=== PATIENT | female | born 1980 | race Caucasian/White ===

== ENCOUNTER 2019-06-26 20:18 | Emergency (ER) | payer BC ==
[2019-06-26] MEDS ORDERED: ONDANSETRON 4 MG/2 ML VIAL IVP STA (21:15)
[2019-06-26] MEDS ORDERED: SODIUM CHLORIDE 0.9% 1,000 ML IV STA (21:15)
[2019-06-26] MEDS ORDERED: KETOROLAC 30 MG/ML 1 ML VIAL IVP STA (21:15)
--- NOTE | 2019-06-26 21:27 | ED ---
General Adult HPI - General Chief complaint: Abdominal Pain Stated complaint: abd pain Time Seen by Provider: 06/26/19 20:48 Source: patient Mode of arrival: ambulatory Limitations: no limitations - History of Present Illness Initial comments: Dictation was produced using [employer] dictation software. please excuse any grammatical, word or spelling errors. Chief Complaint: 38-year-old female presents with flank pain. History of Present Illness: Patient is a 38-year-old female she presents with 3- 4 hours of flank pain. Patient states that the pain is also in her right abdomen. She has history of appendectomy. Patient states that the pain is located to the right lower quadrant however she does have symptoms that also radiated to the right back area. Patient is no history of kidney stones. She denies any vaginal discharge. She has been feeling nauseous. She has been having nonbilious nonbloody emesis. Denies any diarrhea. Denies any fever. The ROS documented in this emergency department record has been reviewed and confirmed by me. Those systems with pertinent positive or negative responses have been documented in the HPI. All other systems are other negative and/or noncontributory. PHYSICAL EXAM: General Impression: Alert and oriented x3, acute distress secondary to pain HEENT: Normocephalic atraumatic, extra-ocular movements intact, pupils equal and reactive to light bilaterally, mucous membranes moist. Cardiovascular: Heart regular rate and rhythm, S1&S2 audible, no murmurs, rubs or gallops Chest: Lungs clear to auscultation bilaterally, no rhonchi, no wheeze, no rales Abdomen: Right lower quadrant tenderness to palpation Musculoskeletal: Pulses present and equal in all extremities, no peripheral edema Motor: no focal deficits noted Neurological: CN II-XII grossly intact, no focal motor or sensory deficits noted Skin: Intact with no visualized rashes Psych: Normal affect and mood ED course: 38-year-old female presents with chief complaint of right flank pain. Vital signs upon arrival are within acceptable limits. Patient appeared to be in distress. Laboratory evaluation was obtained. Mild leukocytosis of 12.5, coag panel unremarkable. Metabolic panel is unremarkable. Urinalysis shows greater 182 red blood cells. Computed tomography scan of the abdomen and pelvis was obtained showing no acute processes. There is however multiple nonobstructing renal calculi. Given symptomatology there is concern that patient's pain was secondary to nephrolithiasis. Patient reevaluated after intravenous fluids and Toradol with improvement of symptoms. Patient is asymptomatic at this time. Patient given referral to urology for outpatient management of kidney stones. She is told to follow-up with primary care physician as well. There is incidental finding of right ovarian cyst. Patient told to follow-up with her primary care physician for outpatient monitoring of ovarian cyst. - Related Data Previous Rx's Medication Instructions Recorded Ibuprofen [Motrin] 800 mg PO Q8HR PRN #20 tab 04/22/14 Orphenadrine [Norflex] 100 mg PO Q12H #10 tablet.er 04/22/14 Allergies Allergy/AdvReac Type Severity Reaction Status Date / Time venom-honey bee AdvReac Unknown Verified 06/26/19 20:42 [bee venom (honey bee)] Review of Systems ROS Statement: Those systems with pertinent positive or pertinent negative responses have been documented in the HPI. ROS Other: All systems not noted in ROS Statement are negative. Past Medical History Past Medical History: Diabetes Mellitus, Hyperlipidemia History of Any Multi-Drug Resistant Organisms: None Reported Past Surgical History: Appendectomy Additional Past Surgical History / Comment(s): oral Past Psychological History: No Psychological Hx Reported Smoking Status: Current every day smoker Past Alcohol Use History: Rare Past Drug Use History: None Reported General Exam Limitations: no limitations Course Vital Signs 06/26/19 06/26/19 20:39 23:01 Temperature 98.5 F Pulse Rate 82 86 Respiratory 20 18 Rate Blood Pressure 144/94 116/80 O2 Sat by Pulse 99 100 Oximetry Medical Decision Making - Lab Data Result diagrams: 06/26/19 21:35 06/26/19 21:35 Lab Results 06/26/19 06/26/19 06/26/19 Range/Units 20:50 20:50 21:35 WBC 12.5 H (3.8-10.6) k/uL RBC 4.60 (3.80-5.40) m/uL Hgb 12.4 (11.4-16.0) gm/dL Hct 39.6 (34.0-46.0) % MCV 86.2 (80.0-100.0) fL MCH 26.9 (25.0-35.0) pg MCHC 31.2 (31.0-37.0) g/dL RDW 13.5 (11.5-15.5) % Plt Count 271 (150-450) k/uL Neutrophils % 70 % Lymphocytes % 23 % Monocytes % 3 % Eosinophils % 1 % Basophils % 1 % Neutrophils # 8.8 H (1.3-7.7) k/uL Lymphocytes # 2.9 (1.0-4.8) k/uL Monocytes # 0.4 (0-1.0) k/uL Eosinophils # 0.2 (0-0.7) k/uL Basophils # 0.1 (0-0.2) k/uL PT (9.0-12.0) sec INR (<1.2) APTT (22.0-30.0) sec Sodium (137-145) mmol/L Potassium (3.5-5.1) mmol/L Chloride (98-107) mmol/L Carbon Dioxide (22-30) mmol/L Anion Gap mmol/L BUN (7-17) mg/dL Creatinine (0.52-1.04) mg/dL Est GFR (CKD-EPI)AfAm (>60 ml/min/1.73 sqM) Est GFR (CKD-EPI)NonAf (>60 ml/min/1.73 sqM) Glucose (74-99) mg/dL Calcium (8.4-10.2) mg/dL Total Bilirubin (0.2-1.3) mg/dL AST (14-36) U/L ALT (4-34) U/L Alkaline Phosphatase (38-126) U/L Total Protein (6.3-8.2) g/dL Albumin (3.5-5.0) g/dL Lipase (23-300) U/L Urine Color Yellow Urine Appearance Clear (Clear) Urine pH QNS Ur Specific Bryan QNS Urine Protein QNS Ur Protein Confirm QNS Urine Glucose (UA) QNS Urine Ketones QNS Urine Blood QNS Urine Nitrite QNS Urine Bilirubin QNS Ur Bilirubin Confirm QNS Urine Urobilinogen QNS Ur Leukocyte Esterase QNS Urine RBC >182 H (0-5) /hpf Urine WBC 13 H (0-5) /hpf Ur Squamous Epith Cells 4 (0-4) /hpf Urine Bacteria Occasional H (None) /hpf Urine Mucus Moderate H (None) /hpf Urine HCG, Qual Not Detected (Not Detectd) 06/26/19 06/26/19 Range/Units 21:35 21:35 WBC (3.8-10.6) k/uL RBC (3.80-5.40) m/uL Hgb (11.4-16.0) gm/dL Hct (34.0-46.0) % MCV (80.0-100.0) fL MCH (25.0-35.0) pg MCHC (31.0-37.0) g/dL RDW (11.5-15.5) % Plt Count (150-450) k/uL Neutrophils % % Lymphocytes % % Monocytes % % Eosinophils % % Basophils % % Neutrophils # (1.3-7.7) k/uL Lymphocytes # (1.0-4.8) k/uL Monocytes # (0-1.0) k/uL Eosinophils # (0-0.7) k/uL Basophils # (0-0.2) k/uL PT 9.5 (9.0-12.0) sec INR 0.9 (<1.2) APTT 23.4 (22.0-30.0) sec Sodium 139 (137-145) mmol/L Potassium 4.0 (3.5-5.1) mmol/L Chloride 105 (98-107) mmol/L Carbon Dioxide 24 (22-30) mmol/L Anion Gap 10 mmol/L BUN 14 (7-17) mg/dL Creatinine 0.72 (0.52-1.04) mg/dL Est GFR (CKD-EPI)AfAm >90 (>60 ml/min/1.73 sqM) Est GFR (CKD-EPI)NonAf >90 (>60 ml/min/1.73 sqM) Glucose 162 H (74-99) mg/dL Calcium 10.2 (8.4-10.2) mg/dL Total Bilirubin 0.4 (0.2-1.3) mg/dL AST 33 (14-36) U/L ALT 45 H (4-34) U/L Alkaline Phosphatase 55 (38-126) U/L Total Protein 8.1 (6.3-8.2) g/dL Albumin 4.8 (3.5-5.0) g/dL Lipase 111 (23-300) U/L Urine Color Urine Appearance (Clear) Urine pH Ur Specific Bryan Urine Protein Ur Protein Confirm Urine Glucose (UA) Urine Ketones Urine Blood Urine Nitrite Urine Bilirubin Ur Bilirubin Confirm Urine Urobilinogen Ur Leukocyte Esterase Urine RBC (0-5) /hpf Urine WBC (0-5) /hpf Ur Squamous Epith Cells (0-4) /hpf Urine Bacteria (None) /hpf Urine Mucus (None) /hpf Urine HCG, Qual (Not Detectd) Disposition Clinical Impression: Flank pain Disposition: HOME SELF-CARE Condition: Good Instructions (If sedation given, give patient instructions): Kidney Stones (ED) Additional Instructions: There is incidental finding of right ovarian cyst seen on CT. Please follow-up with your primary care physician regarding this incidental finding. Is patient prescribed a controlled substance at d/c from ED?: No Referrals: Pro Peral MD [Primary Care Provider] - 1-2 days Fredrick Rodriguez MD [STAFF PHYSICIAN] - 1-2 days Time of Disposition: 23:57
[2019-06-26 21:52] LABS: Bacteria,Urine Occasional /hpf; Mucus,Urine Moderate /hpf; RBC,Urine >182 /hpf (0-5); Squamous Epithelial Cell,Urine 4 /hpf (0-4); WBC,Urine 13 /hpf (0-5)
[2019-06-26 21:53] LABS: Appearance,Urine Clear (Clear); Bilirubin Confirmation, Urine QNS (Negative); Bilirubin,Urine QNS (Negative); Blood,Urine QNS (Negative); Color,Urine Yellow; Glucose,Urine (UA) QNS (Negative); Ketones,Urine QNS (Negative); Leukocyte Esterase,Urine QNS (Negative); Nitrite,Urine QNS (Negative); PH, Urine QNS (5.0-8.0); Protein Confirmation,Urine QNS (Negative); Protein,Urine QNS (Negative); Specific Gravity,Urine QNS (1.001-1.035); Urobilinogen,Urine QNS mg/dL (<2.0)
[2019-06-26 21:59] LABS: Basophils # (A) 0.1 k/uL (0-0.2); Basophils % (A) 1 %; Eosinophils # (A) 0.2 k/uL (0-0.7); Eosinophils % (A) 1 %; HCT 39.6 % (34.0-46.0); HGB 12.4 gm/dL (11.4-16.0); Lymphocytes # (A) 2.9 k/uL (1.0-4.8); Lymphocytes % (A) 23 %; MCH 26.9 pg (25.0-35.0); MCHC 31.2 g/dL (31.0-37.0); MCV 86.2 fL (80.0-100.0); Mean Platelet Volume 8.5; Monocytes # (A) 0.4 k/uL (0-1.0); Monocytes % (A) 3 %; Neutrophils # (A) 8.8 k/uL (1.3-7.7); Neutrophils % (A) 70 %; Platelet Count 271 k/uL (150-450); RDW 13.5 % (11.5-15.5); WBC 12.5 k/uL (3.8-10.6)
[2019-06-26 22:07] LABS: INR 0.9 (<1.2); Partial Thromboplastin Time 23.4 sec (22.0-30.0); Prothrombin Time 9.5 sec (9.0-12.0)
[2019-06-26 22:11] LABS: ALT 45 U/L (4-34); AST 33 U/L (14-36); African American GFR (CKD) >90 (>60 ml/min/1.73 sqM); Albumin 4.8 g/dL (3.5-5.0); Alkaline Phosphatase 55 U/L (38-126); Anion Gap 10 mmol/L; Blood Urea Nitrogen 14 mg/dL (7-17); Calcium 10.2 mg/dL (8.4-10.2); Carbon Dioxide 24 mmol/L (22-30); Chloride 105 mmol/L (98-107); Glucose 162 mg/dL (74-99); Non-African American GFR(CKD) >90 (>60 ml/min/1.73 sqM); Sodium 139 mmol/L (137-145); Total Bilirubin 0.4 mg/dL (0.2-1.3); Total Protein 8.1 g/dL (6.3-8.2)
[2019-06-26 23:02] VITALS: RESP 18
--- NOTE | 2019-06-26 23:04 | CT ---
EXAMINATION TYPE: CT abdomen pelvis w con DATE OF EXAM: 06/26/2019 COMPARISON: None HISTORY: flank pain CT DLP: 1014.8 mGycm Automated exposure control for dose reduction was used. CONTRAST: Performed with IV Contrast, patient injected with 100 mL of Isovue 300. Multiple axial sections were obtained from the diaphragm to the floor the pelvis with intravenous contrast. Lung bases are clear. There is no pleural effusion. Heart appears normal. Liver spleen stomach pancreas gallbladder appear normal. Bile ducts are not dilated. There is no adrenal mass. Kidneys have normal size and contour. There is satisfactory contrast opacif ication of the kidneys. There are multiple small calculi in both kidneys that measure up to 3 mm. The re is normal excretion on the delayed images. There is no hydronephrosis. Bladder distends smoothly. Uterus is anteverted. There is no inguinal hernia. There is no free fluid in the pelvis. There is 3 c m cyst on the right ovary. There is surgical clip apparently from appendectomy. There is no mesenteric edema. There is no ascites or free air. There is no sign of a bowel obstructio n. Lumbar vertebra have normal alignment. Disc spaces are fairly normal. Posterior elements are intact. Bony pelvis is intact. IMPRESSION: No sign of acute abdomen and pelvis. Nonobstructing renal calculi. Right ovarian cyst.
[2019-06-27 00:27] VITALS: BP 120/79; PULSE 84; TEMP 97.9
== END 2019-06-27 00:27 | disposition home or self-care (01) ==
LOC: EC 20:18
DX: R10.31 Right lower quadrant pain (principal); D72.829 Elevated white blood cell count, unspecified; R31.9 Hematuria, unspecified; N20.0 Calculus of kidney; N83.201 Unspecified ovarian cyst, right side; R11.2 Nausea with vomiting, unspecified; M54.5 Low back pain; F17.200 Nicotine dependence, unspecified, uncomplicated; Z91.030 Bee allergy status; Z90.49 Acquired absence of other specified parts of digestive tract
CPT/HCPCS: 99284; 96374; 96375; 96361 ×3; 36415; 80053; 83690; 85025; 85610; 85730; 81025; 74177; J2405; J1885; Q9967

== ENCOUNTER 2021-10-31 16:15 | Emergency (ER) | payer BC, OTHER ==
[2021-10-31 17:04] VITALS: BP 139/74; PULSE 81; RESP 16; TEMP 98.1
[2021-10-31] MEDS ORDERED: HYDROcodone/APAP 5-325MG 1 EACH TAB PO STA (17:36)
--- NOTE | 2021-10-31 17:43 | XR ---
EXAMINATION TYPE: XR knee complete LT DATE OF EXAM: 10/31/2021 5:37 PM INDICATION: Patient age:Female; 41 years old; Reason for study: Pain after injury COMPARISON: None. TECHNIQUE: The Left knee(s) was examined in 3 projections. FINDINGS: No evidence of any acute osseous pathology, joint space narrowing, soft tissue swelling, or joint effusion is noted. IMPRESSION: 1. No acute osseous pathology. 2. Mild tricompartmental osteoarthritic changes.
[2021-10-31] MEDS ORDERED: ACET/COD 300 MG/30 MG STARTER PACK 6 TAB BTL PO STA (18:45)
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
== END 2021-10-31 19:40 | disposition home or self-care (01) ==
LOC: EC 16:15
DX: S83.92XA Sprain of unspecified site of left knee, initial encounter (principal); E11.9 Type 2 diabetes mellitus without complications; E78.5 Hyperlipidemia, unspecified; F17.290 Nicotine dependence, other tobacco product, uncomplicated; W22.8XXA Striking against or struck by other objects, initial encounter; Y99.0 Civilian activity done for income or pay
CPT/HCPCS: 73562; 99283; L1830

== ENCOUNTER → 2021-11-07 | Outpatient (CLI) | payer BC, OTHER ==
--- NOTE | 2021-11-07 18:20 | MR ---
EXAMINATION TYPE: MR knee LT wo con DATE OF EXAM: 11/07/2021 COMPARISON: Plain film 10/31/2021 HISTORY: Pain in Lt Knee, injured at work, safe fell on patient TECHNIQUE: Multiplanar, multisequence imaging of the left knee is performed without IV contrast. FINDINGS: MEDIAL MENISCUS: Anterior and posterior horns are intact without tear. LATERAL MENISCUS: Anterior and posterior horns are intact without tear. CRUCIATE LIGAMENTS: The anterior and posterior cruciate ligaments are intact and unremarkable. COLLATERAL LIGAMENTS: The medial collateral ligament and lateral collateral ligament complex are inta ct and unremarkable. EXTENSOR MECHANISM: Visualized quadriceps and patellar tendons are intact. EFFUSION: There is a suprapatellar joint effusion, joint effusion also present posteriorly at the in tercondylar notch level POPLITEAL CYST: No popliteal/hampton cyst. TRICOMPARTMENT SPACES: Maintained CARTILAGE: No significant arthropathy BONE MARROW SIGNAL: Abnormal signal is present along the proximal tibia laterally, trabecular pattern is abnormal, findings consistent with Darrell trabecular fractures, lateral tibial plateau fracture, bone contusion OTHER: There may be a ganglion cyst at the posterior aspect of the joint along the posterior cruciat e ligament IMPRESSION: Posttraumatic changes to the proximal tibia laterally as described.
== END | disposition home or self-care (01) ==
LOC: RADMRIMAIN 14:53
PROVIDERS: ATTEND Orthopaedic Surgery Sports Medicine
DX: S82.142A Displaced bicondylar fracture of left tibia, initial encounter for closed fracture (principal)

== ENCOUNTER → 2021-11-25 | Outpatient (CLI) | payer OTHER ==
--- NOTE | 2021-11-26 04:56 | MR ---
EXAMINATION TYPE: MR cspine/tspine/lspine wo con DATE OF EXAM: 11/25/2021 COMPARISON: HISTORY: Neck and back pain into left side TECHNIQUE: Multiplanar, multisequence imaging of the lumbar thoracic and cervical spine is performed without IV contrast. FINDINGS: Cervical spine. The cervical vertebra have normal alignment. Disc spaces are fairly normal. No cervical disc herniati on. There is developmentally adequate spinal canal. No spinal stenosis. Cervical spinal cord has norm al signal pattern. No edema. Brainstem is intact. Facet joints are intact. No cervical paraspinal mas s. IMPRESSION: Cervical spine appears normal for age. No cervical disc herniation or spinal stenosis. Thoracic spine. There is a small posterior disc bulge at T7-8. There is developmentally adequate spinal canal and no spinal stenosis. Thoracic spinal cord has normal signal pattern. No edema. There is no thoracic joey paulina mass. No evidence of focal bone destruction. No compression fracture. IMPRESSION: Small posterior T7-8 disc bulge. No thoracic spinal stenosis. No fracture. Lumbar spine. The lumbar vertebrae have normal alignment. There is some decreased signal in the disc at L5-S1. Ther e is small posterior disc bulge at L5-S1. There is developmentally adequate spinal canal and no lumba r spinal stenosis. The lumbar neural foramina appear widely patent. There is no lumbar paraspinal mas s. Sacroiliac joints appear intact. IMPRESSION: Negative MR scan of the lumbar spine. No fracture. No spinal stenosis
== END | disposition home or self-care (01) ==
LOC: RADMRIMAIN 15:23
PROVIDERS: ATTEND Orthopaedic Surgery Orthopaedic Surgery of the Spine
DX: M51.24 Other intervertebral disc displacement, thoracic region (principal)
CPT/HCPCS: 72141; 72146; 72148